=== PATIENT | male | born 1945 | race Caucasian/White ===

== ENCOUNTER 2023-07-01 06:31 | Day surgery (SDC) | payer MEDICARE, SELFPAY ==
--- NOTE | 2023-05-23 08:14 | CM ---
Patient is scheduled for an elective R Reverse TSA on 07/01/23- he is a same day patient. Spoke with patient prior to surgery. Introduced role of Orthopedic Navigator. Patient reports that he lives with his in an in law suite at his daughter's
home (one level with no steps to enter). Currently he functions independently. He does not use any DME and has never had VN services. PCP is Dr. Stan Landrum.
Discussed orthopedic program and post surgical plans. Patient will return home when directed by surgeon. Reviewed MD follow up and transition to outpatient therapy. Patient is in agreement with tentative plan and states that his will be home
with him and can assist if needed.
Patient will complete online education.
Plan: Orthopedic Navigator will be involved in the care of patient after surgery and will reassess discharge needs at that time.
[2023-06-19 12:55] VITALS: BMI 25.0
[2023-06-19 13:24] LABS: Hematocrit 38.7 % (39.0-52.0); Hemoglobin 13.4 g/dL (13.0-18.0); Mean Corp Hgb Conc. 34.6 g/dL (33.0-37.0); Mean Corpuscular Hgb 31.7 pg (27.0-31.0); Mean Corpuscular Volume 91.5 fL (80.0-94.0); Mean Platelet Volume 8.8 fL (7.4-10.4); Platelet Count 257 10^3/uL (130-400); Red Blood Cell Count 4.23 10^6/uL (4.70-6.10); White Blood Cell Count 4.6 10^3/uL (4.8-10.8)
[2023-06-19 13:29] LABS: ALT (SGPT) 32 U/L (0-50); AST (SGOT) 32 U/L (17-59); Albumin 4.3 g/dl (3.5-5.0); Alkaline Phosphatase 93 U/L (38-126); Blood Urea Nitrogen 17 mg/dl (9-20); Carbon Dioxide 25 mmol/L (22-30); Chloride 104 mmol/L (98-107); Estimated Creatinine Clearance 92 ml/min; Glucose 101 mg/dl (70-99); Potassium 4.2 mmol/L (3.5-5.1); Sodium 136 mmol/L (135-145); Total Bilirubin 0.6 mg/dl (0.2-1.3); Total Protein 7.8 g/dl (6.3-8.2); eGFR > 60.00
[2023-06-19 14:20] LABS: Glycohemoglobin (HgbA1c) 5.6 % (4.0-5.6)
[2023-06-19 16:24] VITALS: BMI 25.0
[2023-07-01] VITALS (9 sets, daily range): BP systolic 108–128; BP diastolic 58–76; BMI 25.0
[2023-07-01] MEDS: TYLENOL 1000 MG PO (08:38)
[2023-07-01] MEDS: CELEBREX 200 MG PO (08:38)
[2023-07-01] MEDS: NORMOSOL-R 1000 IV (08:39)
--- NOTE | 2023-07-01 14:30 | W.DS.TRANS ---
DC Summary - Physician Obstetrician
-
Discharge Instructions:
Sleep Apnea Risk Low
Discharge Diagnosis/Procedures R Reverse TSA 07/01/23
Diet As tolerated
Activity No strenuous activity
Driving Restrictions No driving
Instructions:
Stand-Alone Forms:
Changes to Home Medications: Yes
Discharge Medications:
DC Medications w/original date entered in [id number]
vit C 250 mg-vit E 90 mg-zinc 40 mg-copper 1 [id number] capsule (PreserVision AREDS-2) 1 tab PO BID 06/10/23
mupirocin 2 % topical ointment 1 applic topical BID infection prevention #1 tube 06/19/23
acetaminophen 500 mg tablet 1,000 mg PO QID #0 tabs 07/01/23
aspirin 325 mg tablet 325 mg PO DAILY blood clot prevention #1 tab 07/01/23
celecoxib 200 mg capsule 200 mg PO DAILY anti-inflammatory #14 caps 07/01/23
dexamethasone 4 mg tablet 4 mg PO BID inflammation #6 tabs 07/01/23
docusate sodium 100 mg capsule (Colace) 100 mg PO BID stool softner #1 cap 07/01/23
famotidine 20 mg tablet 20 mg PO HS GI prophylaxis #30 tabs 07/01/23
gabapentin 300 mg capsule 300 mg PO HS sleep/pain #10 caps 07/01/23
magnesium hydroxide 400 mg/5 mL oral suspension (Milk of Magnesia) 30 ml PO HS PRN Constipation #1 mL 07/01/23
oxycodone 5 mg tablet 5 - 10 mg PO Q6HPRN PRN 1 tab moderate-2 tabs severe pain #30 tabs 07/01/23
Home Medication Changes
celecoxib 200 mg capsule 200 mg PO DAILY anti-inflammatory #14 caps 07/01/23
dexamethasone 4 mg tablet 4 mg PO BID inflammation #6 tabs 07/01/23
famotidine 20 mg tablet 20 mg PO HS GI prophylaxis #30 tabs 07/01/23
gabapentin 300 mg capsule 300 mg PO HS sleep/pain #10 caps 07/01/23
oxycodone 5 mg tablet 5 - 10 mg PO Q6HPRN PRN 1 tab moderate-2 tabs severe pain #30 tabs
Pending Results: No
[2023-07-01] MEDS: ANCEF 5 IV (15:11)
== END 2023-07-01 15:52 | disposition home or self-care (01) ==
LOC: SDS 06:31
PROVIDERS: ATTENDING PHYSICIAN Specialist; FAMILY PHYSICIAN Family Medicine; OTHER PHYSICIAN Internal Medicine Cardiovascular Disease
DX: M19.011 Primary osteoarthritis, right shoulder (principal)
CPT/HCPCS: 23472; C1776; 36415; 73020; 80053; 83036; 85027; 87070; 87075; C1713

== ENCOUNTER 2023-08-28 12:51 | Outpatient (RCR) | payer MEDICARE, SELFPAY | END 2023-08-28 23:59 | disposition home or self-care (01) | LOC: RPT 12:51 | PROVIDERS: ATTENDING PHYSICIAN Specialist; FAMILY PHYSICIAN Family Medicine | DX: Z47.1 Aftercare following joint replacement surgery (principal); Z73.6 Limitation of activities due to disability; R20.2 Paresthesia of skin; M25.511 Pain in right shoulder; Z96.611 Presence of right artificial shoulder joint | CPT/HCPCS: 97010; 97110; 97140; 97161; 97530 ==

== ENCOUNTER 2023-09-25 11:45 | Outpatient (RCR) | payer MEDICARE, SELFPAY | END 2023-09-25 23:59 | disposition home or self-care (01) | LOC: RPT 11:45 | PROVIDERS: ATTENDING PHYSICIAN Specialist; FAMILY PHYSICIAN Family Medicine | DX: Z47.1 Aftercare following joint replacement surgery (principal); Z73.6 Limitation of activities due to disability; R20.2 Paresthesia of skin; M25.511 Pain in right shoulder; Z96.611 Presence of right artificial shoulder joint | CPT/HCPCS: 97010; 97110; 97140 ==

== ENCOUNTER 2023-10-10 11:11 | Outpatient (RCR) | payer MEDICARE, SELFPAY | END 2023-10-10 23:59 | disposition home or self-care (01) | LOC: RPT 11:11 | PROVIDERS: ATTENDING PHYSICIAN Specialist; FAMILY PHYSICIAN Family Medicine | DX: Z47.1 Aftercare following joint replacement surgery (principal); Z73.6 Limitation of activities due to disability; R20.2 Paresthesia of skin; M25.511 Pain in right shoulder; Z96.611 Presence of right artificial shoulder joint | CPT/HCPCS: 97010; 97110; 97112; 97140 ==

== ENCOUNTER 2023-11-20 12:59 | Outpatient (RCR) | payer MEDICARE, SELFPAY | END 2023-11-20 23:59 | disposition home or self-care (01) | LOC: RPT 12:59 | PROVIDERS: ATTENDING PHYSICIAN Specialist; FAMILY PHYSICIAN Family Medicine | DX: Z47.1 Aftercare following joint replacement surgery (principal); Z73.6 Limitation of activities due to disability; R20.2 Paresthesia of skin; Z96.611 Presence of right artificial shoulder joint; M25.511 Pain in right shoulder | CPT/HCPCS: 97010; 97110; 97112; 97140 ==

== ENCOUNTER → 2024-01-29 09:22 | Outpatient (REF) | payer MEDICARE, SELFPAY | LOC: RCS 09:22 | PROVIDERS: ATTENDING PHYSICIAN Internal Medicine Cardiovascular Disease; FAMILY PHYSICIAN Family Medicine | DX: R07.89 Other chest pain (principal); I48.0 Paroxysmal atrial fibrillation | CPT/HCPCS: 93017; 93350 ==

== ENCOUNTER → 2024-01-30 09:20 | Outpatient (REF) | payer MEDICARE, SELFPAY ==
[2024-01-30 11:11] LABS: ALT (SGPT) 22 U/L (0-50); AST (SGOT) 28 U/L (17-59); Albumin 4.4 g/dl (3.5-5.0); Alkaline Phosphatase 113 U/L (38-126); Blood Urea Nitrogen 16 mg/dl (9-20); Calcium 9.5 mg/dl (8.4-10.2); Carbon Dioxide 30 mmol/L (22-30); Chloride 102 mmol/L (98-107); Glucose 97 mg/dl (70-99); HDL Cholesterol 57 mg/dl; LDL Cholesterol, Calculated 89 mg/dl; Potassium 4.2 mmol/L (3.5-5.1); Sodium 142 mmol/L (135-145); Total Bilirubin 0.6 mg/dl (0.2-1.3); Total Cholesterol 156 mg/dl (50-199); Total Protein 7.9 g/dl (6.3-8.2); Triglyceride 53 mg/dl (10-149); Very Low Density Lipoprotein 10 mg/dl (0-30); eGFR > 60.00
[2024-01-30 11:22] LABS: LDL Cholesterol, Direct 80 mg/dl
== END ==
LOC: REG 09:20
PROVIDERS: ATTENDING PHYSICIAN Internal Medicine Cardiovascular Disease; FAMILY PHYSICIAN Family Medicine
DX: I48.0 Paroxysmal atrial fibrillation (principal); I25.10 Atherosclerotic heart disease of native coronary artery without angina pectoris; E78.3 Hyperchylomicronemia; Z13.220 Encounter for screening for lipoid disorders
CPT/HCPCS: 36415; 80053; 80061; 83721

== ENCOUNTER 2024-02-06 08:49 | Day surgery (SDC) | payer MEDICARE, SELFPAY ==
[2024-02-06] VITALS (12 sets, daily range): BP systolic 100–129; BP diastolic 57–72; BMI 22.8
[2024-02-06 09:43] LABS: Hematocrit 38.1 % (39.0-52.0); Mean Corp Hgb Conc. 34.1 g/dL (33.0-37.0); Mean Corpuscular Hgb 31.1 pg (27.0-31.0); Mean Corpuscular Volume 91.1 fL (80.0-94.0); Mean Platelet Volume 9.5 fL (7.4-10.4); Platelet Count 216 10^3/uL (130-400); Red Blood Cell Count 4.18 10^6/uL (4.70-6.10); Red Cell Dist. Width 13.4 % (11.5-14.5); White Blood Cell Count 5.1 10^3/uL (4.8-10.8)
--- NOTE | 2024-02-06 12:45 | ITS.CL.CATH ---
Planning Analyst - Catheterization
Cardiac Catheterization
Procedure Report:
LEFT HEART CATHETERIZATION
Date of Procedure: February 06, 2024
Referring: Dr. James Coyle
PROCEDURES:
1. Left heart catheterization with coronary and single-plane left ventriculography
INDICATION: Chest pain with abnormal stress test. Planned shoulder surgery within the next several weeks
ACCESS: Right radial artery, 6 [place] sheath
HEMODYNAMICS : (mmHg)
AO (s/d) : 99/55, 73
LV (s/d) : 102/3
LVEDP : 14
CORONARY FINDINGS note: JL 4 was required for engagement of the left main via radial approach.
DOMINANCE: Right
LEFT MAIN: Normal
LEFT ANTERIOR DESCENDING: The LAD arises normally from the left main and runs in the anterior interventricular groove. The LAD is mildly calcified in its midportion with no significant intraluminal coronary plaque noted. Only minor irregularities
are present. The distal LAD wraps around the apex.
CIRCUMFLEX: The circumflex is a medium caliber dominant vessel. OM1 arises near the origin of the circumflex and runs in the distribution typical of a ramus intermedius. OM1 is large and widely patent. It bifurcates to a a large and much smaller
daughter branch.
RIGHT CORONARY ARTERY: The right coronary artery is a dominant vessel that is widely patent with only minor irregularities over its course
VENTRICULOGRAPHY: Left ventriculography is performed in an BLUE projection. The digital single-plane left ventricular ejection fraction is estimated at 50-55%. No regional wall motion abnormalities are noted. The sinus of Valsalva and the
ascending thoracic aorta are mildly dilated.
RADIATION SUMMARY: Fluoro Time (min): 3.3, Dose (mGy): 185.3, DAP (Gy.cm2) : 15.3
Closure Device: TR band
CONCLUSIONS
1. Nonobstructive coronary disease
2. Preserved left ventricular systolic function with possible dilation of the ascending thoracic aorta
RECOMMENDATIONS
1. Continued medical therapy
2. Will likely need CT scanning of the chest to evaluate aortic dimensions
Copy to: Dr. James Coyle
== END 2024-02-06 13:55 | disposition home or self-care (01) ==
LOC: CATH 08:49
PROVIDERS: ATTENDING PHYSICIAN Internal Medicine Interventional Cardiology; FAMILY PHYSICIAN Family Medicine; OTHER PHYSICIAN Internal Medicine Cardiovascular Disease
DX: I25.10 Atherosclerotic heart disease of native coronary artery without angina pectoris (principal); R07.9 Chest pain, unspecified; R94.39 Abnormal result of other cardiovascular function study; I48.0 Paroxysmal atrial fibrillation; Z87.891 Personal history of nicotine dependence; Z79.82 Long term (current) use of aspirin
CPT/HCPCS: 85027; 93458; C1894; Q9967

== ENCOUNTER → 2024-05-21 13:46 | Outpatient (REF) | payer MEDICARE, SELFPAY | LOC: RAD 13:46 | PROVIDERS: ATTENDING PHYSICIAN Specialist; FAMILY PHYSICIAN Family Medicine | DX: M25.512 Pain in left shoulder (principal) | CPT/HCPCS: 73200 ==

== ENCOUNTER 2024-06-08 05:55 | Day surgery (SDC) | payer MEDICARE, SELFPAY ==
[2024-05-21 13:24] VITALS: BMI 23.2
[2024-05-21 14:28] LABS: Hematocrit 39.9 % (39.0-52.0); Hemoglobin 13.2 g/dL (13.0-18.0); Mean Corp Hgb Conc. 33.1 g/dL (33.0-37.0); Mean Corpuscular Hgb 31.4 pg (27.0-31.0); Mean Corpuscular Volume 94.8 fL (80.0-94.0); Mean Platelet Volume 9.7 fL (7.4-10.4); Platelet Count 209 10^3/uL (130-400); Red Blood Cell Count 4.21 10^6/uL (4.70-6.10); Red Cell Dist. Width 12.9 % (11.5-14.5); White Blood Cell Count 4.4 10^3/uL (4.8-10.8)
[2024-05-21 14:49] LABS: ALT (SGPT) 24 U/L (0-50); AST (SGOT) 26 U/L (17-59); Albumin 4.4 g/dl (3.5-5.0); Alkaline Phosphatase 82 U/L (38-126); Blood Urea Nitrogen 12 mg/dl (9-20); Calcium 9.4 mg/dl (8.4-10.2); Carbon Dioxide 28 mmol/L (22-30); Chloride 99 mmol/L (98-107); Estimated Creatinine Clearance 95 ml/min; Glucose 93 mg/dl (70-99); Sodium 139 mmol/L (135-145); Total Bilirubin 0.4 mg/dl (0.2-1.3); Total Protein 7.9 g/dl (6.3-8.2); eGFR > 60.00
[2024-05-21 15:03] LABS: Glycohemoglobin (HgbA1c) 5.8 % (4.0-5.6)
[2024-06-03 10:51] VITALS: BMI 23.2
[2024-06-08] VITALS (8 sets, daily range): BP systolic 110–121; BP diastolic 61–75
[2024-06-08] MEDS: TYLENOL 1000 MG PO (06:16)
[2024-06-08] MEDS: CELEBREX 200 MG PO (06:16)
[2024-06-08] MEDS: NORMOSOL-R/PLASMALYTE-A 1000 IV (06:25)
--- NOTE | 2024-06-08 10:01 | W.DS.TRANS ---
DC Summary - [employer]
-
Discharge Instructions:
Sleep Apnea Risk Low
Discharge Diagnosis/Procedures L Reverse TSA
Diet As tolerated
Activity No strenuous activity
Driving Restrictions No driving
Instructions:
Stand-Alone Forms: SDS Total Shoulder D/C Inst.
Changes to Home Medications: Yes
Discharge Medications:
DC Medications w/original date entered in [facility]
vit C 250 mg-vit E 90 mg-zinc 40 mg-copper 1 [id number] capsule (PreserVision AREDS-2) 1 tab PO Q12H 02/06/24
aspirin 81 mg capsule 81 mg PO DAILY 06/03/24
mupirocin 2 % topical ointment 1 applic topical BID 06/03/24
rosuvastatin 10 mg tablet 10 mg PO DAILY 06/03/24
acetaminophen 325 mg tablet (Tylenol) 650 mg (2 x 325 mg) PO QID #1 tab 06/08/24
aspirin 325 mg tablet 325 mg PO DAILY blood clot prevention #1 tab 06/08/24
celecoxib 100 mg capsule 100 mg PO BID Anti-inflammatory #14 caps 06/08/24
dexamethasone 4 mg tablet 4 mg PO BID inflammation #6 tabs 06/08/24
docusate sodium 100 mg capsule (Colace) 100 mg PO BID stool softner #1 cap 06/08/24
magnesium hydroxide 400 mg/5 mL oral suspension (Milk of Magnesia) 30 ml PO HS PRN Constipation #1 mL 06/08/24
ondansetron 4 mg disintegrating tablet 4 mg PO Q6H PRN n/v #20 tabs 06/08/24
oxycodone 5 mg tablet 5 mg PO Q6H PRN 1 tab moderate pain, 2 tabs severe pain #30 tabs 06/08/24
sennosides 8.6 mg tablet (Senokot) 17.2 mg (2 x 8.6 mg) PO BID laxative #2 tabs 06/08/24
Home Medication Changes
aspirin 325 mg tablet 325 mg PO DAILY blood clot prevention #1 tab 06/08/24
celecoxib 100 mg capsule 100 mg PO BID Anti-inflammatory #14 caps 06/08/24
dexamethasone 4 mg tablet 4 mg PO BID inflammation #6 tabs 06/08/24
docusate sodium 100 mg capsule (Colace) 100 mg PO BID stool softner #1 cap 06/08/24
magnesium hydroxide 400 mg/5 mL oral suspension (Milk of Magnesia) 30 ml PO HS PRN Constipation #1 mL 06/08/24
ondansetron 4 mg disintegrating tablet 4 mg PO Q6H PRN n/v #20 tabs 06/08/24
oxycodone 5 mg tablet 5 mg PO Q6H PRN 1 tab moderate pain, 2 tabs severe pain #30 tabs 06/08/24
sennosides 8.6 mg tablet (Senokot) 17.2 mg (2 x 8.6 mg) PO BID laxative #2 tabs 06/08/24
Pending Results: No
[2024-06-08] MEDS: ANCEF 5 IV (10:57)
== END 2024-06-08 11:45 | disposition home or self-care (01) ==
LOC: SDS 05:55
PROVIDERS: ATTENDING PHYSICIAN Specialist; FAMILY PHYSICIAN Family Medicine; REFERRING PHYSICIAN Internal Medicine Cardiovascular Disease
DX: M19.012 Primary osteoarthritis, left shoulder (principal)
CPT/HCPCS: 23472; 73020; 80053; 83036; 85027; 87070; C1713; C1776

== ENCOUNTER → 2024-09-21 09:28 | Outpatient (REF) | payer MEDICARE, SELFPAY | LOC: HWRAD 09:28 | PROVIDERS: ATTENDING PHYSICIAN Physician Assistant Surgical; FAMILY PHYSICIAN Family Medicine | DX: Z96.611 Presence of right artificial shoulder joint (principal) | CPT/HCPCS: 73200 ==